=== PATIENT | female | born 1965 | race Native Hawaiian/Other Pacific Islander ===

== ENCOUNTER 2018-06-27 13:13 | Emergency (ER) | payer OTHER, SELFPAY ==
--- NOTE | 2018-06-27 13:18 | PC.NURSE ---
1315 spoke patient in lobby negative fast exam.
[2018-06-27 13:39] VITALS: BP 181/98; PULSE 96; RESP 18; TEMP 36.6; O2SAT 96; BMI 34.2
--- NOTE | 2018-06-27 14:03 | DI.RAD.S_ITS ---
PROCEDURE: XR CHEST 2V INDICATIONS: pressure in chest TECHNIQUE: 2 views of the chest were acquired. COMPARISON: None. FINDINGS: Surgical changes and devices: None. Lungs and pleura: Lungs are clear. No pleural effusions or pneumothorax. Mediastinum: Mediastinal contours are normal. Heart size is normal. Bones and chest wall: No suspicious bony abnormalities. Soft tissues appear unremarkable. IMPRESSION: No acute disease. Dictated by: Nick Patel M.D. on 06/27/2018 at 14:23 Approved by: Nick Patel M.D. on 06/27/2018 at 14:23
[2018-06-27 14:47] LABS: Alanine Aminotransferase 61 IU/L (9-52); Albumin 4.7 g/dL (3.5-5.0); Albumin Globulin Ratio 1.2 (1.0-2.8); Alkaline Phosphatase 74 U/L (38-126); Aspartate Aminotransferase 30 IU/L (14-36); BUN Creatinine Ratio 31.4 (6-22); Bilirubin Total 0.8 mg/dL (0.2-1.3); Blood Urea Nitrogen 22 mg/dL (7-17); Calcium 9.5 mg/dL (8.4-10.2); Carbon Dioxide 28 mmol/L (22-32); Chloride 99 mmol/L (98-107); Creatine Kinase 27 U/L (30-135); Estimated Glomerular Filt Rate > 60.0 mL/min (>60); Glucose 112 mg/dL (70-100); HEMOLYSIS < 15 (0-50); Lipase 154 U/L (23-300); Sodium 139 mmol/L (137-145); Total Protein 8.7 g/dL (6.3-8.2)
[2018-06-27 14:58] LABS: Troponin I < 0.012 ng/mL (0.01-0.034)
[2018-06-27 15:00] LABS: Add Manual Diff / Slide Review NO; Basophils Absolute Auto 100 /uL (0-100); Basophils Percent Auto 0.8 % (0-2); Eosinophils Absolute Auto 200 /uL (0-450); Eosinophils Percent Auto 1.9 % (2-4); Hematocrit 45.9 % (36-46); Hemoglobin 15.5 g/dL (12.0-16.0); Lymphocytes Absolute Auto 2400 /uL (1100-4500); Lymphocytes Percent Auto 29.6 % (25-40); Mean Corpuscular HGB Conc 33.8 % (30-36); Mean Corpuscular Hemoglobin 28.7 PG (26-34); Mean Corpuscular Volume 84.8 fL (80-100); Monocytes Absolute Auto 600 /uL (0-900); Monocytes Percent Auto 7.8 % (3-14); Neutrophils Absolute Auto 4800 /uL (1500-7000); Neutrophils Percent Auto 59.9 % (50-75); Platelet Count 274 X10^3/uL (150-400); Red Blood Cell Count 5.42 X10^6/uL (4.0-5.2); Red Cell Distribution Width 13.1 % (11.6-14.8); White Blood Cell Count 8.1 X10^3/uL (4.5-11.0)
[2018-06-27 15:08] VITALS: BP 137/91; PULSE 91; RESP 16; O2SAT 97
--- NOTE | 2018-06-27 15:14 | PC.NURSE ---
Pt seen at [facility] on friday. 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 Reports upper arms bilateral with numbness. Denies any other pain except for in head at this time
--- NOTE | 2018-06-27 15:40 | ED_ITS ---
HPI - Chest Pain General Chief Complaint: Chest Pain Stated Complaint: Numbess in face and arms Time Seen by Provider: 06/27/18 15:15 Source: patient and family () Mode of arrival: ambulatory Limitations: no limitations History of Present Illness HPI narrative: This is a 52-year-old comes to the emergency department. She states that Friday she started feeling like she was having swelling of her face. Patient also feels like she has some in her neck. Patient states that started Friday, she started feeling sort of in her upper shoulders a little bit and some numbness bilaterally or Friday she states that that has been continuing. She was seen at would be on Friday they gave her Benadryl as well as a dose of prednisone there she states that it did not really seem to do anything. They did not send her home with any medications but told her she can continue Benadryl which she has. Patient has not had any fevers, she has mid maybe some nasal congestion. She has not had any cold or cough symptoms otherwise. She and her state may be her cheeks mandible area seem a little swollen bilaterally but it is difficult for them to tell. She does not have any pain in the neck or sore throat, she has not had any muffled voice, no hoarseness. No stridor or wheezing. Patient states she has not had any discrete swelling of her lips or in her mouth. Patient felt like she may have h ad some tightness or shortness of breath in her chest at some point but not currently. She states it is mostly constant. She has been on lisinopril for about 3 years, she has a history of total hysterectomy and cholecystectomy. She does not smoke, she does not drink any alcohol, no marijuana or street drugs. She sees Dr. Butt at the [employer] Related Data Allergies Allergy/AdvReac Type Severity Reaction Status Date / Time No Known Drug Allergies Allergy Verified 06/27/18 13:47 Review of Systems Review of Systems ROS Unobtainable: All systems reviewed & are unremarkable except as noted in HPI and below Constitutional Denies chills, Denies fatigue, Denies fever(s), Denies headache(s), Denies lethargy and Denies weakness Eyes Denies blurry vision, Denies eye discharge and Denies itchy eyes ENT Ears, Nose, Mouth, and Throat: Reports as per HPI, Denies change in voice, Denies dysphagia, Denies facial pain, Denies headache(s), Denies hoarseness, Denies lip swelling, Reports nasal congestion, Denies neck mass, Denies neck pain, Denies sore throat, Reports throat swelling, Denies tongue swelling and Reports other (face swelling) Cardiovascular Denies chest pain, Denies edema, Denies irregular heart rhythm, Denies lightheadedness, Denies palpitations, Reports dyspnea (occasionally) and Denies orthopnea Respiratory Denies chest congestion, Denies cough, Denies excessive phlegm production, Denies pain on inspiration, Denies pain with cough, Reports dyspnea (occasionally), Denies stridor and Denies wheezing Gastrointestinal Gastrointestinal: Denies abdominal pain, Denies change in stool character, Denies dysphagia, Denies diarrhea, Denies nausea and Denies vomiting Genitourinary Denies other (urinary symptoms) Musculoskeletal Denies neck pain, Denies stiffness and Denies tingling Integumentary/Breasts Denies rash Neurologic Denies headache(s), Denies tingling and Denies weakness Endocrine Denies fatigue and Denies palpitations Allergic/Immunologic Denies itchy eyes, Denies lip swelling, Reports throat swelling, Denies tongue swelling and Denies wheezing PFSH Medical History Hypertension (Acute) Surgical History H/O total hysterectomy (Acute) Hx of cholecystectomy (Acute) Social History marital status: Smoking Status: Never smoker substance use type: does not use Social History marital status: Smoking Status: Never smoker substance use type: does not use Exam Narrative Exam Narrative: GEN: well nourished, well appearing female, alert and oriented x 3, patient appears to be in no acute distress. HEENT: Atraumatic, pupils are equal round reactive to light, extraocular movements are intact, nares are clear, TMs are clear with no fluid, there is no conjunctival pallor. Throat is clear without any exudates, erythema, tonsillar enlargement or uvular deviation, no facial swelling appreciated. No glandular swelling of the parotids, salivary gland, patient does not have any cervical chain lymphadenopathy, patient does not have any enlargement of the thyroid with palpation. No stridor, no facial swelling. HEART: Regular rate and rhythm without murmur, clicks, rubs. LUNGS:Lungs clear to auscultation, no wheezes, rales, crackles, chest moves symmetrically. No tachypnea, no accessory muscle use. ABD:bowel sounds normal, soft, non-tender, no guarding, rebound, rigidity, no masses noted, no hepatosplenomegaly MSCL: Non-tender, no muscle atrophy, muscles strength 5/5 upper and lower extremities, full range of motion, normal gait NEURO:CN 2-12 intact, sensation normal Initial Vital Signs Initial Vital Signs: Vital Signs Temperature 97.8 F 06/27/18 13:39 Pulse Rate 96 H 06/27/18 13:39 Respiratory Rate 18 06/27/18 13:39 Blood Pressure 181/98 H 06/27/18 13:39 Pulse Oximetry 96 06/27/18 13:39 Course Orders Ordered: ED Orders 06/27/18 13:56 EKG-12 Lead Stat 06/27/18 14:03 XR chest 2V Stat EKG-12 Lead Stat 06/27/18 14:15 Complete Blood Count AUTO DIFF Stat Comprehensive Metabolic Panel Stat Lipase Stat Troponin & CK Cardiac Panel Stat Discontinued Medications Aspirin (Aspirin Chew) 324 mg PO NOW ONE Stop: 06/27/18 14:04 Last Admin: 06/27/18 16:18 Dose: Not Given Vital Signs - 8 hr 06/27/18 13:39 06/27/18 15:08 06/27/18 16:19 Temperature 97.8 F Pulse Rate 96 H 91 H 95 H Respiratory Rate 18 16 16 Blood Pressure 181/98 H 127/86 Blood Pressure [Left Arm] 137/91 H Pulse Oximetry 96 97 98 MDM - Chest Pain Lab Data Attestation: I reviewed the patient's lab results. Result diagrams: 06/27/18 14:15 06/27/18 14:15 Lab Results 06/27/18 06/27/18 Range/Units 14:15 14:15 WBC 8.1 (4.5-11.0) X10^3/uL RBC 5.42 H (4.0-5.2) X10^6/uL Hgb 15.5 (12.0-16.0) g/dL Hct 45.9 (36-46) % MCV 84.8 (80-100) fL MCH 28.7 (26-34) PG MCHC 33.8 (30-36) % RDW 13.1 (11.6-14.8) % Plt Count 274 (150-400) X10^3/uL Neut % (Auto) 59.9 (50-75) % Lymph % (Auto) 29.6 (25-40) % [place] % (Auto) 7.8 (3-14) % Eos % (Auto) 1.9 L (2-4) % Baso % (Auto) 0.8 (0-2) % Neut # (Auto) 4800 (7706-1941) /uL Lymph # (Auto) 2400 (6254-8474) /uL [place] # (Auto) 600 (0-900) /uL Eos # (Auto) 200 (0-450) /uL Baso # (Auto) 100 (0-100) /uL Sodium 139 (137-145) mmol/L Potassium 5.0 (3.4-5.1) mmol/L Chloride 99 (98-107) mmol/L Carbon Dioxide 28 (22-32) mmol/L BUN 22 H (7-17) mg/dL Creatinine 0.70 (0.52-1.04) mg/dL Estimated GFR > 60.0 (>60) mL/min BUN/Creatinine Ratio 31.4 H (6-22) Glucose 112 H (70-100) mg/dL Calcium 9.5 (8.4-10.2) mg/dL Total Bilirubin 0.8 (0.2-1.3) mg/dL AST 30 (14-36) IU/L ALT 61 H (9-52) IU/L Alkaline Phosphatase 74 (38-126) U/L Total Creatine Kinase 27 L (30-135) U/L CK-MB (CK-2) TNP CK-MB (CK-2) Rel Index TNP Troponin I < 0.012 (0.01-0.034) ng/mL Total Protein 8.7 H (6.3-8.2) g/dL Albumin 4.7 (3.5-5.0) g/dL Globulin 4.0 (1.7-4.1) g/dL Albumin/Globulin Ratio 1.2 (1.0-2.8) Lipase 154 (23-300) U/L Imaging Data Chest x-ray: Radiologist's impression: [address] [address] XRay Report Signed Patient: Amada Buck FMR#: [id number] : 1965Acct:[id number] Age/Sex: 52 / FDate of Service: 06/27/18 Loc: ED Accession Number: [id number] Procedure: XR chest 2V Ordering Provider: Mercy Gibbons D.O. PROCEDURE: XR CHEST 2V INDICATIONS: pressure in chest TECHNIQUE: 2 views of the chest were acquired. COMPARISON: None. FINDINGS: Surgical changes and devices: None. Lungs and pleura: Lungs are clear. No pleural effusions or pneumothorax. Mediastinum: Mediastinal contours are normal. Heart size is normal. Bones and chest wall: No suspicious bony abnormalities. Soft tissues appear unremarkable. IMPRESSION: No acute disease. Dictated by: Nick Patel M.D. on 06/27/2018 at 14:23 Approved by: Nick Patel M.D. on 06/27/2018 at 14:23 ECG Data Attestation: I personally reviewed and interpreted this ECG as follows: Interpretation: Sinus rhythm with a rate of 82, IA interval 148, QRS is 74 and QTC of 388. No ST elevation or depression appreciated. MDM Narrative Medical decision making narrative: Discussed with patient her symptoms are atypical for a chest pain or cardiac presentation, patient's troponin and EKG are negative unable to rule out with greater than 6 hr since last symptom onset. Patient has had sensation of swelling of the face and neck, her states they might see a little bit of change but it is difficult for them to totally appreciate. Patient does not have any other changes other significant for infec tious causes, I am not finding any causes such as a salivary gland stone, parotitis, we discussed possibly angioedema 2nd to RENE inhibitor. She did not have any improvement with Benadryl or steroids. She does take lisinopril and has been on for several years discussed this could potentially be the cause of her symptoms although people will typically have more pronounced symptoms. Discussed stopping her lisinopril for several days to see if this resolves her symptoms and following up with primary care to monitor BP and either restart her lisinopril if this does not make any difference or stop it completely and have her started on a new BP medication. Discharge Plan Departure Patient Disposition: Home Clinical Impression: Neck swelling, Facial swelling Discharge Date/Time: 06/27/18 16:20 Interventions: ED Discharge Assessment Last Done: 06/27/18 16:19 Instructions: DI for Angioedema Activity Restrictions/Additional Instructions: I suspect you may have angioedema secondary to your lisinopril. Stop taking lisinopril for the next week. Call Friday morning to set up follow up with your physician, let them know that you have been asked to stop her lisinopril as it is suspected this may be the cause of your symptoms and the need to evaluate to see if to you should restart your lisinopril or be changed to a new blood pressure medication. He may continue to use Benadryl if he finds helpful. Return to the emergency department for fevers greater than 100.4, rapidly worsening symptoms, if you have a muffled voice, stridor or high-pitched wheezing, if you are unable to swallow liquids, if you are having swelling of the lips, mouth or, persistent vomiting or other new or concerning symptoms. Stand Alone Forms: Work Release Note
[2018-06-27 16:19] VITALS: BP 127/86; PULSE 95; RESP 16; O2SAT 98
== END 2018-06-27 16:20 | disposition home or self-care (01) ==
PROVIDERS: Emergency Provider Emergency Medicine
DX: R60.9 Edema, unspecified (principal); R07.9 Chest pain, unspecified
CPT/HCPCS: 36415; 71046; 80053; 82550; 83690; 84484; 85025; 93005; 93010; 99282; 99285